=== PATIENT | female | born 1950 | race Caucasian/White ===

== ENCOUNTER 2020-01-17 | Inpatient (IN) | payer MEDICARE | END 2020-01-21 14:08 | disposition home or self-care (01) | DRG 872 | PROVIDERS: ADMIT Internal Medicine | PROC: 0DB68ZX Excision of Stomach, Via Natural or Artificial Opening Endoscopic, Diagnostic (ICD-10-PCS; principal; 2020-01-20) | DX: A41.9 Sepsis, unspecified organism (principal); E03.9 Hypothyroidism, unspecified; K21.9 Gastro-esophageal reflux disease without esophagitis; I10 Essential (primary) hypertension; G47.30 Sleep apnea, unspecified; I48.91 Unspecified atrial fibrillation; K52.9 Noninfective gastroenteritis and colitis, unspecified; D64.9 Anemia, unspecified; K44.9 Diaphragmatic hernia without obstruction or gangrene; K31.7 Polyp of stomach and duodenum; R19.5 Other fecal abnormalities; E66.9 Obesity, unspecified; E87.6 Hypokalemia; Z90.49 Acquired absence of other specified parts of digestive tract; Z68.32 Body mass index [BMI] 32.0-32.9, adult ==

== ENCOUNTER 2020-06-13 08:45 | Outpatient (CLI) | payer MEDICARE, OTHER ==
[2020-06-14 11:00] LABS: SARS-CoV-2 MS2 Positive; SARS-CoV-2 N Gene Negative; SARS-CoV-2 S Gene Negative; SARS-CoV-2 by NAA Not Detected (NotDetected); SARS-CoV-2 orf1ab Negative
== END 2020-06-13 08:46 | disposition home or self-care (01) ==
LOC: LABBT 08:45
PROVIDERS: ATTEND Family Medicine
DX: H54.7 Unspecified visual loss (principal); Z20.828 Contact with and (suspected) exposure to other viral communicable diseases
CPT/HCPCS: 87635; U0003

== ENCOUNTER 2020-06-18 07:24 | Day surgery (SDC) | payer MEDICARE ==
[2020-06-17 15:12] VITALS: BMI 31.3
[~2020-06-18 07:24] MED LIST: EPINEPHrine 0.3 MG in Ophthalmic Irrigation Solution 500 ML IRR SCH; Fentanyl 100 MCG/2 ML VIAL ONE; Midazolam HCl 2 mg/2 ml Vial ONE
[2020-06-18] MEDS ORDERED: Cyclopentolate 1% Opth Drop 2 ML BOT ONE (07:40)
[2020-06-18] MEDS ORDERED: Phenylephrine 2.5% Ophth Soln 5 ML BOT ONE (07:40)
[2020-06-18] MEDS ORDERED: Ondansetron PF 4 MG/2 ML Vial ONE (10:17)
[2020-06-18] MEDS ORDERED: Indocyanine Green 25 MG/10 ML VIAL ONE (11:33)
[2020-06-18] MEDS ORDERED: Triamcinolone 40 MG/ML VIAL ONE (11:33)
[2020-06-18] MEDS ORDERED: Maxitrol 0.1% Opth Oint 3.5 GM TUBE ONE (11:33)
[2020-06-18] MEDS ORDERED: Lidocaine 4% PF 5 ML AMP ONE (11:33)
[2020-06-18] MEDS ORDERED: Bupivacaine PF 0.75% SDV 10 ML ONE (11:33)
[2020-06-18] MEDS ORDERED: CEFAZOLIN 1 GM VIAL ONE (11:33)
[2020-06-18] MEDS ORDERED: Lidocaine 1% PF 5 ML VIAL ONE (11:33)
--- NOTE | 2020-06-18 11:39 | OP ---
DATE OF PROCEDURE: 06/18/2020 PRINCIPAL PREOPERATIVE DIAGNOSIS: Macular hole, right eye. POSTOPERATIVE DIAGNOSIS: Macular hole, right eye. PROCEDURES PERFORMED: 1. 25-gauge pars plana vitrectomy, right eye. 2. Internal limiting membrane peel, right eye. 3. 15% SF6 gas fill. ESTIMATED BLOOD LOSS: None. SPECIMENS REMOVED: None. COMPLICATIONS: None. ANESTHESIA: MAC with sub-Tenon's block. DESCRIPTION OF PROCEDURE: The patient was identified in the preoperative holding area. The correct eye being the right eye was marked for surgery. The patient was taken to the operating room, where MAC anesthesia was induced. The right eye was prepped and draped in the usual sterile ophthalmic fashion for surgery. A wire-clip lid speculum was placed. An inferonasal conjunctival peritomy was fashioned with Angy scissors for administration of sub-Tenon's block. The block consisted of 1:1 ratio of 4% lidocaine and 0.75% Marcaine. A total of 5 mL was administered. A standard 25-gauge pars plana vitrectomy platform was fashioned with trocars placed approximately 3.5 mm from the limbus. The infusion was noted to be within the vitreous cavity prior to being turned on to an infusion pressure of 30 mmHg. The light pipe and microvitrector were introduced in the eye under visualization of the BIOM viewing system. A careful core vitrectomy was performed followed by injection of Kenalog. A gentle posterior vitreous detachment was subsequently created followed by completion of peripheral shave vitrectomy. Following vitrectomy, ICG dye was used to stain the internal limiting membrane. Using the Navarro ILM forceps, the internal limiting membrane was peeled in a circumferential fashion about the fovea. The peel extended approximately 2 disc diameters in radius circumferentially. Following peeling, the microvitrector was reintroduced in the eye, removing residual vitreous debris. A 360-degree scleral depressed exam of periphery revealed no defects. An air-fluid exchange was performed followed by an air-gas exchange with 15% SF6. The cannulas were sequentially removed and all sclerotomies were noted to be gas tight. Subconjunctival Ancef and Kenalog were injected. The wire-clip lid speculum was removed followed by application of TobraDex ophthalmic ointment and a light patch and shield. The patient tolerated the procedure well and was taken to outpatient recovery area in good condition. Job ID: [id number]
== END 2020-06-18 12:45 | disposition home or self-care (01) ==
LOC: SDC 07:24
PROVIDERS: ATTEND Ophthalmology Retina Specialist
PROC: 08T43ZZ Resection of Right Vitreous, Percutaneous Approach (ICD-10-PCS; principal; 2020-06-18)
PROC: 08NE3ZZ Release Right Retina, Percutaneous Approach (ICD-10-PCS; 2020-06-18)
DX: H35.341 Macular cyst, hole, or pseudohole, right eye (principal)
CPT/HCPCS: 67025; J0171; J0690; J2001; J2250; J2405; J3010; J3301; J3490

== ENCOUNTER 2020-12-03 12:26 | Outpatient (CLI) | payer MEDICARE ==
[2020-12-03 14:01] LABS: #Basophils 0.1 10x3/uL (0.0-0.2); #Eosinphils 0.2 10x3/uL (0.0-0.5); #Monocytes 0.6 10x3/uL (0.0-1.1); #Neutrophils 3.2 10x3/uL (1.5-8.4); %Eosinophils 2.6 % (0.0-6.0); %Lymphocytes 33.4 % (18.0-47.0); %Monocytes 10.2 % (0.0-10.0); %Neutrophils 52.5 % (40.0-75.0); Hemoglobin 12.9 g/dL (12.0-15.5); Mean Corpuscular HGB CONC 31.9 g/dL (32.0-36.0); Mean Corpuscular Hemoglobin 29.6 pg (27.0-33.0); Mean Corpuscular Volume 92.9 fl (81.6-98.3); Mean Platelet Volume 9.7 fl (7.4-10.4); Platelet Count 359 10x3/uL (150-450); RBC Distribution Width 13.8 % (11.5-14.5); Red Blood Cell (RBC) Count 4.36 10x6/uL (3.90-5.03); White Blood Cell (WBC) Count 6.1 10x3/uL (3.5-10.5)
[2020-12-03 14:24] LABS: Prothrombin Time 11.3 sec (9.5-12.1)
[2020-12-03 14:28] LABS: Anion Gap 15 mmol/L (10-20); BUN (Urea Nitrogen) 12 mg/dL (9.8-20.1); Calc. Creatinine Clearance 0 mL/min (70-130); Calcium 8.9 mg/dL (7.8-10.44); Carbon Dioxide 23 mmol/L (23-31); Chloride 107 mmol/L (98-107); Glucose 83 mg/dL (80-115); Sodium 141 mmol/L (136-145)
[2020-12-04 01:20] LABS: SARS-CoV-2 PCR by NAA Not Detected (NotDetected)
== END 2020-12-03 12:27 | disposition home or self-care (01) ==
LOC: LABBT 12:26
PROVIDERS: ATTEND Internal Medicine Cardiovascular Disease
DX: Z01.812 Encounter for preprocedural laboratory examination (principal); Z20.822 Contact with and (suspected) exposure to COVID-19
CPT/HCPCS: 80048; 85025; 85610; 85730; U0003; U0005; 87635

== ENCOUNTER 2020-12-06 11:03 | Day surgery (SDC) | payer MEDICARE ==
[2020-12-05 11:37] VITALS: BMI 32.8
[2020-12-06] MEDS ORDERED: PROPOFOL 20 ML ONE (12:05)
== END 2020-12-06 13:35 | disposition home or self-care (01) ==
LOC: SDC 11:03
PROVIDERS: ATTEND Internal Medicine Cardiovascular Disease
PROC: 5A2204Z Restoration of Cardiac Rhythm, Single (ICD-10-PCS; principal; 2020-12-06)
DX: I48.19 Other persistent atrial fibrillation (principal); I10 Essential (primary) hypertension; D51.0 Vitamin B12 deficiency anemia due to intrinsic factor deficiency; Z79.82 Long term (current) use of aspirin; Z79.899 Other long term (current) drug therapy; Z79.01 Long term (current) use of anticoagulants; Z91.040 Latex allergy status
CPT/HCPCS: 92960; 93005; 93010; J2704

== ENCOUNTER 2021-03-12 06:03 | Observation (INO) | payer MEDICARE ==
[2021-03-11 12:35] VITALS: BMI 32.8
[2021-03-13 09:41] VITALS: BP 110/68; TEMP 97.6
== END 2021-03-13 12:40 | disposition home or self-care (01) ==
LOC: CCL 06:03 → 2SW 10:44
PROVIDERS: ADMIT Internal Medicine Cardiovascular Disease; ATTEND Internal Medicine Cardiovascular Disease
PROC: 02583ZZ Destruction of Conduction Mechanism, Percutaneous Approach (ICD-10-PCS; principal; 2021-03-12)
PROC: 02K83ZZ Map Conduction Mechanism, Percutaneous Approach (ICD-10-PCS; 2021-03-12)
PROC: 4A023FZ Measurement of Cardiac Rhythm, Percutaneous Approach (ICD-10-PCS; 2021-03-12)
PROC: 4A0234Z Measurement of Cardiac Electrical Activity, Percutaneous Approach (ICD-10-PCS; 2021-03-12)
DX: I48.0 Paroxysmal atrial fibrillation (principal); I48.92 Unspecified atrial flutter; E07.9 Disorder of thyroid, unspecified; I10 Essential (primary) hypertension; I08.1 Rheumatic disorders of both mitral and tricuspid valves; E66.9 Obesity, unspecified; Z68.32 Body mass index [BMI] 32.0-32.9, adult; Z79.01 Long term (current) use of anticoagulants; Z79.82 Long term (current) use of aspirin; Z79.899 Other long term (current) drug therapy; Z91.040 Latex allergy status
CPT/HCPCS: 76942; 82962; 85347 ×2; 93005 ×2; 93613; 93622; 93623; 93655; 93656; 93657; 93662; C1732 ×3; C1759; 36416; 93010; 96374; 96375; G0378; J1100; J1644; J1885; J2405; J2704; J2720; J3010

== ENCOUNTER 2021-04-30 12:08 | Outpatient (CLI) | payer MEDICARE ==
[2021-04-30 14:58] LABS: Hemoglobin 12.8 g/dL (12.0-15.5); Mean Corpuscular Volume 93.9 fl (81.6-98.3); Platelet Count 397 10x3/uL (150-450); RBC Distribution Width 14.6 % (11.5-14.5); Red Blood Cell (RBC) Count 4.26 10x6/uL (3.90-5.03)
[2021-04-30 15:50] LABS: Anion Gap 15 mmol/L (10-20); BUN (Urea Nitrogen) 13 mg/dL (9.8-20.1); Calc. Creatinine Clearance 0 mL/min (70-130); Calcium 9.6 mg/dL (7.8-10.44); Carbon Dioxide 22 mmol/L (23-31); Chloride 109 mmol/L (98-107); Glucose 88 mg/dL (80-115); Potassium 4.3 mmol/L (3.5-5.1); Sodium 142 mmol/L (136-145)
[2021-04-30 15:59] LABS: PTT 25.8 sec (22.0-33.0); Prothrombin Time 11.1 sec (9.5-12.1)
[2021-05-01 12:09] LABS: SARS-CoV-2 PCR by NAA Not Detected (NotDetected)
== END 2021-04-30 12:09 | disposition home or self-care (01) ==
LOC: LABBT 12:08
PROVIDERS: ATTEND Internal Medicine Cardiovascular Disease
DX: Z01.812 Encounter for preprocedural laboratory examination (principal); Z51.81 Encounter for therapeutic drug level monitoring; I48.91 Unspecified atrial fibrillation; I51.9 Heart disease, unspecified; Z20.822 Contact with and (suspected) exposure to COVID-19; Z79.01 Long term (current) use of anticoagulants
CPT/HCPCS: 80048; 85027; 85610; 85730; U0003; U0005

== ENCOUNTER 2021-05-02 11:04 | Day surgery (SDC) | payer MEDICARE ==
[2021-04-30 15:08] VITALS: BMI 32.8
== END 2021-05-02 12:24 | disposition home or self-care (01) ==
LOC: CCL 11:04
PROVIDERS: ATTEND Internal Medicine Cardiovascular Disease
DX: I48.0 Paroxysmal atrial fibrillation (principal); I48.4 Atypical atrial flutter; I08.1 Rheumatic disorders of both mitral and tricuspid valves; I11.9 Hypertensive heart disease without heart failure; E07.9 Disorder of thyroid, unspecified; E66.9 Obesity, unspecified; Z68.32 Body mass index [BMI] 32.0-32.9, adult; Z53.8 Procedure and treatment not carried out for other reasons; Z79.01 Long term (current) use of anticoagulants; Z79.82 Long term (current) use of aspirin; Z79.899 Other long term (current) drug therapy; Z91.040 Latex allergy status
CPT/HCPCS: 93005; 93010

== ENCOUNTER 2021-12-22 12:21 | Outpatient (CLI) | payer MEDICARE ==
[2021-12-22 13:29] LABS: #Neutrophils 2.2 10x3/uL (1.5-8.4); %Neutrophils 47.6 % (40.0-75.0)
[2021-12-22 13:30] LABS: #Basophils 0.1 10x3/uL (0.0-0.2); #Eosinphils 0.1 10x3/uL (0.0-0.5); #Monocytes 0.5 10x3/uL (0.0-1.1); %Basophils 1.1 % (0.0-2.0); %Eosinophils 2.4 % (0.0-6.0); %Lymphocytes 39.1 % (18.0-47.0); %Monocytes 9.8 % (0.0-10.0); Hemoglobin 12.4 g/dL (12.0-15.5); Mean Corpuscular Hemoglobin 28.8 pg (27.0-33.0); Mean Platelet Volume 9.4 fl (7.4-10.4); Platelet Count 353 10x3/uL (150-450); RBC Distribution Width 14.2 % (11.5-14.5); Red Blood Cell (RBC) Count 4.31 10x6/uL (3.90-5.03); White Blood Cell (WBC) Count 4.7 10x3/uL (3.5-10.5)
[2021-12-22 13:51] LABS: ALT (SGPT) 13 U/L (8-55); AST (SGOT) 10 U/L (5-34); Albumin 4.1 g/dL (3.4-4.8); Alkaline Phosphatase 93 U/L (40-110); Anion Gap 14 mmol/L (10-20); BUN (Urea Nitrogen) 9 mg/dL (9.8-20.1); Bilirubin, Total 0.9 mg/dL (0.2-1.2); Calc. Creatinine Clearance 0 mL/min (70-130); Calcium 9.2 mg/dL (7.8-10.44); Carbon Dioxide 24 mmol/L (23-31); Chloride 108 mmol/L (98-107); Glucose 98 mg/dL (80-115); Potassium 3.9 mmol/L (3.5-5.1); Protein, Total 7.1 g/dL (5.8-8.1); Sodium 142 mmol/L (136-145)
[2021-12-23 00:09] LABS: SARS-CoV-2 PCR by NAA Not Detected (NotDetected)
== END 2021-12-22 12:22 | disposition home or self-care (01) ==
LOC: LABBT 12:21
PROVIDERS: ATTEND Internal Medicine Cardiovascular Disease
DX: Z01.812 Encounter for preprocedural laboratory examination (principal); Z20.822 Contact with and (suspected) exposure to COVID-19
CPT/HCPCS: 80053; 85025; U0003; U0005

== ENCOUNTER 2021-12-26 11:12 | Day surgery (SDC) | payer MEDICARE ==
[2021-12-23 11:01] VITALS: BMI 32.4
== END 2021-12-26 12:00 | disposition home or self-care (01) ==
LOC: SDC 11:12
PROVIDERS: ATTEND Internal Medicine Cardiovascular Disease
DX: I48.4 Atypical atrial flutter (principal); E07.9 Disorder of thyroid, unspecified; I10 Essential (primary) hypertension; I48.19 Other persistent atrial fibrillation; Z53.8 Procedure and treatment not carried out for other reasons; Z86.16 Personal history of COVID-19; Z79.01 Long term (current) use of anticoagulants; Z79.82 Long term (current) use of aspirin; Z79.890 Hormone replacement therapy; Z79.899 Other long term (current) drug therapy
CPT/HCPCS: 93005; 93010

== ENCOUNTER 2022-09-14 12:28 | Outpatient (CLI) | payer MEDICARE ==
[2022-09-14 14:03] LABS: Hemoglobin 12.5 g/dL (12.0-15.5); Mean Corpuscular HGB CONC 32.5 g/dL (32.0-36.0); Mean Corpuscular Hemoglobin 30.3 pg (27.0-33.0); Mean Corpuscular Volume 93.2 fl (81.6-98.3); Mean Platelet Volume 9.5 fl (7.4-10.4); Platelet Count 292 10x3/uL (150-450); RBC Distribution Width 12.8 % (11.5-14.5); Red Blood Cell (RBC) Count 4.13 10x6/uL (3.90-5.03)
[2022-09-14 14:12] LABS: Prothrombin Time 10.9 sec (9.5-12.1)
[2022-09-14 14:20] LABS: Anion Gap 11 mmol/L (10-20); BUN (Urea Nitrogen) 13 mg/dL (9.8-20.1); Calc. Creatinine Clearance 0 mL/min (70-130); Calcium 9.5 mg/dL (7.8-10.44); Carbon Dioxide 26 mmol/L (23-31); Chloride 111 mmol/L (98-107); Estimated GFR 85; Glucose 87 mg/dL (83-110); Potassium 4.4 mmol/L (3.5-5.1); Sodium 144 mmol/L (136-145)
== END 2022-09-14 12:29 | disposition home or self-care (01) ==
LOC: LABBT 12:28
PROVIDERS: ATTEND Internal Medicine Cardiovascular Disease
DX: Z01.818 Encounter for other preprocedural examination (principal)
CPT/HCPCS: 80048; 85027; 85610; 85730; 93005; 93010

== ENCOUNTER 2022-09-16 08:41 | Day surgery (SDC) | payer MEDICARE ==
[2022-09-15 10:51] VITALS: BMI 29.2
[2022-09-16] MEDS ORDERED: Heparin 25,000 units/D5W 500 ML ONE (09:31)
[2022-09-16] MEDS ORDERED: Heparin 10,000 UNITS/ 10 ML VIAL ONE (09:31)
[2022-09-16] MEDS ORDERED: Protamine Sulfate 50 MG/5 ML VIAL ONE ×2 (09:31→13:34)
[2022-09-16] MEDS ORDERED: FENTANYL 50 MCG/ML 1 ML VIAL ONE (09:51)
[2022-09-16] MEDS ORDERED: PROPOFOL 200 MG/20 ML VIAL ONE (10:06)
[2022-09-16] MEDS ORDERED: NEOSTIGMINE 3 MG/3 ML SYR 3 MG/3 ML SYRINGE ONE (10:06)
[2022-09-16] MEDS ORDERED: Rocuronium Bromide 10 MG/ML (10ML VIAL) ONE (10:06)
[2022-09-16] MEDS ORDERED: Ondansetron PF 4 MG/2 ML Vial ONE ×2 (10:06→14:57)
[2022-09-16] MEDS ORDERED: Glycopyrrolate 0.2 MG/ML 5 ML SYRINGE ONE (10:06)
[2022-09-16] MEDS ORDERED: Isoproterenol 0.2 MG/1 ML AMP ONE ×2 (11:14→12:59)
[2022-09-16] MEDS ORDERED: Fentanyl 100 MCG/2 ML VIAL ONE (15:34)
[2022-09-16] MEDS ORDERED: Promethazine HCl 25 MG/ML VIAL ONE (16:16)
== END 2022-09-16 19:12 | disposition home or self-care (01) ==
LOC: SDC 08:41
PROVIDERS: ATTEND Internal Medicine Cardiovascular Disease
PROC: B244ZZ3 Ultrasonography of Right Heart, Intravascular (ICD-10-PCS; principal; 2022-09-16)
PROC: 02583ZZ Destruction of Conduction Mechanism, Percutaneous Approach (ICD-10-PCS; 2022-09-16)
PROC: 02K83ZZ Map Conduction Mechanism, Percutaneous Approach (ICD-10-PCS; 2022-09-16)
PROC: 4A023FZ Measurement of Cardiac Rhythm, Percutaneous Approach (ICD-10-PCS; 2022-09-16)
PROC: 4A0234Z Measurement of Cardiac Electrical Activity, Percutaneous Approach (ICD-10-PCS; 2022-09-16)
DX: I48.19 Other persistent atrial fibrillation (principal); I48.4 Atypical atrial flutter; E07.9 Disorder of thyroid, unspecified; I10 Essential (primary) hypertension; Z79.01 Long term (current) use of anticoagulants; Z79.82 Long term (current) use of aspirin; Z79.890 Hormone replacement therapy; Z79.899 Other long term (current) drug therapy; Z91.040 Latex allergy status; Z91.048 Other nonmedicinal substance allergy status
CPT/HCPCS: 85347 ×2; 93005; 93623; 93655; 93656; J3010; 93010; C1732; C1759; C1884; C1894; J1644; J2405; J2550; J2704; J2720

== ENCOUNTER 2024-08-08 13:09 | Outpatient (CLI) | payer MEDICARE | END 2024-08-08 13:10 | disposition home or self-care (01) | LOC: BICMAMMO 13:09 | PROVIDERS: ATTEND Family Medicine | DX: Z12.31 Encounter for screening mammogram for malignant neoplasm of breast (principal); Z78.0 Asymptomatic menopausal state | CPT/HCPCS: 77063; 77067; 77080 ==